=== PATIENT | female | born 1975 | race Hispanic/Latino ===

== ENCOUNTER 2024-02-12 18:52 | Emergency (ER) | payer OTHER, SELFPAY ==
[2024-02-12 19:04] VITALS: BP 148/99
[2024-02-12 19:23] LABS: Urine Albumin Negative (Neg - Trace); Urine Bilirubin Negative (Negative); Urine Character Clear (Clear); Urine Color Yellow; Urine Glucose Negative (Negative); Urine Ketone Negative (Negative); Urine Leukocyte Trace (Negative); Urine Nitrite Negative (Negative); Urine Occult Blood Negative (Negative); Urine Specific Gravity 1.015 (<1.030); Urine Urobilinogen Negative (Neg - 1+)
[2024-02-12 19:24] LABS: % Basophils 0.6 % (0-2); % Immature Granulocytes 0.2 % (0-0.5); % Lymphocytes 22.3 % (20.5-51.1); % Monocytes 8.9 % (1.7-9.3); Absolute Basophils 0.1 10^3/uL (0-0.2); Absolute Eosinophils 0.3 10^3/uL (0-0.7); Absolute Monocytes 0.8 10^3/uL (0.1-0.6); Absolute Neutrophils 5.9 10^3/uL (1.4-6.5); Hematocrit 37.7 % (37.0-47.0); Hemoglobin 13.4 g/dL (12.0-16.0); Mean Corp Hgb Conc. 35.5 g/dL (33.0-37.0); Mean Corpuscular Hgb 32.8 pg (27.0-31.0); Mean Corpuscular Volume 92.4 fL (81.0-99.0); Mean Platelet Volume 10.6 fL (7.4-10.4); Nucleated Red Blood Cells % 0 %; Platelet Count 289 10^3/uL (130-400); Red Blood Cell Count 4.08 10^6/uL (4.20-5.40); Red Cell Dist. Width 12.5 % (11.5-14.5); White Blood Cell Count 9.1 10^3/uL (4.8-10.8)
[2024-02-12 19:29] LABS: Urine Red Blood Cell None Seen /HPF (0-2); Urine White Cell 0-2 /HPF (0-5)
[2024-02-12 19:44] LABS: ALT (SGPT) 16 U/L (0-35); AST (SGOT) 21 U/L (14-36); Albumin 4.6 g/dl (3.5-5.0); Alkaline Phosphatase 88 U/L (38-126); Blood Urea Nitrogen 15 mg/dl (7-17); Calcium 9.4 mg/dl (8.4-10.2); Carbon Dioxide 20 mmol/L (22-30); Chloride 110 mmol/L (98-107); Glucose 109 mg/dl (70-99); Lipase 90 U/L (23-300); Potassium 3.8 mmol/L (3.5-5.1); Sodium 138 mmol/L (135-145); Total Bilirubin 0.2 mg/dl (0.2-1.3); Total Protein 7.8 g/dl (6.3-8.2); eGFR > 60.00
[2024-02-12 20:20] VITALS: BMI 24.6
[2024-02-12 20:25] VITALS: BP 144/95
[2024-02-12 21:00] VITALS: BP 147/81
--- NOTE | 2024-02-12 22:54 | ED.GENMED ---
History of Present Illness
General
Chief Complaint: Musculo-Skeletal Complaint
Source: patient
Exam Limitations: none
Time Seen by Provider: 02/12/24 20:14
Nursing documentation reviewed up to this point in time: agreed with
Travel History
Have you had any contact with someone who has COVID-19?: No
Do you have any symptoms of coronavirus? Fever > 100 degrees, chills, cough, shortness of breath, sore throat, loss of taste or smell, muscle aches, or headache?: No
History of Present Illness
History of Present Illness:
Patient to ED with complaint of right sided abdominal pain. States she has had intermittent pain for the past month but today it was constant. SHe has been seen by PCP for this. Has US scheduled for but states pain was worse today. Denies
fever/chill. Neg n/v/d. Eating and drinking normally. Pain is worse with movement. No urinary symptoms.
Past History
Past History
ED Past Medical History: None
ED Past Surgical History: Gynecological (Tubal ligation)
Social History
Tobacco: Smoker
Alcohol: None
Drug: None
Personal: Other
Living: with family
Employment: Employed
Family History
Family History: Negative Early CAD
Review of Systems
Review of Systems
Allergies reviewed?: Yes
All Other Systems: ROS reviewed and negative except as documented in HPI and ROS
Constitutional: Reports no symptoms
EENT: Reports no symptoms
Respiratory: Reports no symptoms
Cardiac: Reports no symptoms
ABD/GI: Reports abdominal pain (right upper abd and flank)
: Reports flank pain
Musculoskeletal: Reports no symptoms
Skin: Reports no symptoms
Neurological: Reports no symptoms
Psychiatric: Reports no symptoms
Phy Exam
General Physical Exam
General Presentation: well appearing and no apparent distress
General age: appears stated age
General Skin: warm and dry
General Habitus: normal
General Mental: alert
Pulmonary Exam
Pulmonary Exam: no respiratory distress and chest non tender
Gastrointestinal Exam
Gastrointestinal Exam: normal bowel sounds, non tender, soft, no organomegaly and no cva tenderness
Musculoskeletal Exam
Musculoskeletal Exam: full ROM and neuro vasc intact
Skin Exam
Skin Exam: normal color, warm/dry and no rash
Psychiatric Exam
Psychiatric Exam: normal mood/affect
Course
Orders/Labs/Results
Orders:
Orders
02/12/24 19:15
Complete Blood Count/With Diff Urgent
Comprehensive Metabolic Panel Urgent
Lipase Urgent
Urinalysis Reflex To Culture Urgent
Date Specimen was Collected: 02/12/24
Time Specimen was Collected: 19:08
Urine Microscopic Reflex Cult Urgent
02/12/24 21:09
US Abdomen Complete/Upper Urgent
Comment:
Reason For Exam: right flank/upper abd. pain
02/12/24 22:19
Tamsulosin [Flomax] 0.4 mg PO NOW STA
02/12/24 22:26
Hydrocodone 5/APAP 325 [[place] 5/325] 1 tablet PO NOW STA
Abnormal Lab Results
02/12/24
19:15
RBC 4.08 L 10^6/uL
(4.20-5.40)
MCH 32.8 H pg
(27.0-31.0)
MPV 10.6 H fL
(7.4-10.4)
Absolute Monos (auto) 0.8 H 10^3/uL
(0.1-0.6)
Chloride 110 H mmol/L
(98-107)
Carbon Dioxide 20 L mmol/L
(22-30)
Creatinine 1.1 H mg/dL
(0.6-1.0)
Glucose 109 H mg/dl
(70-99)
Leukocyte Esterase Rfl Trace A
(Negative)
02/12/24 19:15
02/12/24 19:15
Vital Signs
Initial and Last Documented VS:
Initial Vital Signs
Temp Pulse Resp BP Pulse Ox
98.3 F 89 18 148/99 100
02/12/24 19:04 02/12/24 19:04 02/12/24 19:04 02/12/24 19:04 02/12/24 19:04
Last Documented Vital Signs
Temp Pulse Resp BP Pulse Ox
98.3 F 89 18 147/81 100
02/12/24 19:04 02/12/24 19:04 02/12/24 19:04 02/12/24 21:00 02/12/24 20:57
*Critical Care Note
Total Time (30-74mins, 75-104mins- exclusive of procedures): Not Applicable
Update Note
Update Note:
Labs, US result reviewed with pateint. No findings to explain her symptoms. Adomen is soft, no tenderness to palpation. SHe describes pain as deep. No lower abdomen or pelvic pain. Doubtful that CT will add anything at this time. No WBC
elevation. LFT's normal. Will discharge home, follow up with PCP. Given instructions on s/s to return to ED and she is agreeable to plam
ED Attending Note
-
Portions of this chart may have been created with voice recognition software.� Occasional wrong word or��sound alike� substitutions may have occurred due to the inherent limitations of voice recognition software.
Discharge Plan
Departure
Patient Disposition: Home (Routine Discharge)
Date of Disposition: 02/12/24
Time of Disposition: 22:37
Patient with high blood pressure during this ER visit?: No
Condition: Good
Covid-19: Not Applicable
Discharge Problem:
Abdominal pain
Instructions: Abdominal Pain
Prescriptions:
No Action
hydrocodone-acetaminophen 1 TABLET tablet
1 tab PO Q4HPRN PRN (Reason: severe pain) Qty: 12 0RF
Referrals:
Wander Kincaid MD [Family Provider] - Call in 1-3 days for appt
Activity Restrictions/Additional Instructions:
return to the emergency department immediately for fever/chills, increasing pain, vomiting, or for any further concerns.
Interventions
Interventions:
*Risk Screen - Suicide Last Done: 02/12/24 20:20
*General Assessment Last Done: 02/12/24 20:20
*Neglect/Abuse Screening Last Done: 02/12/24 20:20
ED- Fall Risk Assessment Last Done: 02/12/24 20:20
*ED COVID-19 Vaccine History Last Done: 02/12/24 20:20
*Nursing Disposition Last Done: 02/12/24 22:43
ED-Musculoskeletal Assessment Last Done: 02/12/24 20:20
Discharge Date and Time
Discharge Date/Time: 02/12/24 22:43
== END 2024-02-12 22:43 | disposition home or self-care (01) ==
LOC: EMR 18:52
PROVIDERS: EMERGENCY PHYSICIAN Emergency Medicine; FAMILY PHYSICIAN Family Medicine
DX: R10.9 Unspecified abdominal pain (principal); F17.200 Nicotine dependence, unspecified, uncomplicated; Z98.51 Tubal ligation status
CPT/HCPCS: 99284; 76700; 80053; 81003; 81015; 83690; 85025

== ENCOUNTER 2025-03-10 13:34 | Emergency (ER) | payer OTHER, SELFPAY ==
[2025-03-10 13:36] VITALS: BP 120/94
[2025-03-10 14:14] LABS: % Basophils 0.6 % (0-2); % Eosinophils 0.5 % (0-6); % Immature Granulocytes 0.3 % (0-0.5); % Lymphocytes 10.9 % (20.5-51.1); % Monocytes 8.3 % (1.7-9.3); % Neutrophils 79.4 % (42.2-75.2); Absolute Basophils 0.1 10^3/uL (0-0.2); Absolute Eosinophils 0.1 10^3/uL (0-0.7); Absolute Lymphocytes 1.1 10^3/uL (1.2-3.4); Absolute Monocytes 0.8 10^3/uL (0.1-0.6); Absolute Neutrophils 7.9 10^3/uL (1.4-6.5); Hematocrit 38.2 % (37.0-47.0); Hemoglobin 13.7 g/dL (12.0-16.0); Mean Corp Hgb Conc. 35.9 g/dL (33.0-37.0); Mean Corpuscular Hgb 33.7 pg (27.0-31.0); Mean Corpuscular Volume 94.1 fL (81.0-99.0); Mean Platelet Volume 10.5 fL (7.4-10.4); Nucleated Red Blood Cells % 0 %; Platelet Count 310 10^3/uL (130-400); Red Blood Cell Count 4.06 10^6/uL (4.20-5.40); Red Cell Dist. Width 12.4 % (11.5-14.5)
[2025-03-10 14:18] LABS: Urine Albumin Negative (Neg - Trace); Urine Bilirubin Negative (Negative); Urine Character Clear (Clear); Urine Glucose Negative (Negative); Urine Ketone 2+ (Negative); Urine Leukocyte Negative (Negative); Urine Nitrite Negative (Negative); Urine Occult Blood 1+ (Negative); Urine Specific Gravity 1.015 (<1.030); Urine Urobilinogen Negative (Neg - 1+)
[2025-03-10 14:21] LABS: Urine Color Straw
[2025-03-10 14:27] LABS: HCG, Serum Qualitative Screen Negative
[2025-03-10 14:30] LABS: ALT (SGPT) 14 U/L (0-35); AST (SGOT) 23 U/L (14-36); Albumin 4.9 g/dl (3.5-5.0); Alkaline Phosphatase 100 U/L (38-126); Blood Urea Nitrogen 8 mg/dl (7-17); Calcium 9.5 mg/dl (8.4-10.2); Carbon Dioxide 19 mmol/L (22-30); Chloride 109 mmol/L (98-107); Glucose 130 mg/dl (70-99); Lipase 53 U/L (23-300); Potassium 3.8 mmol/L (3.5-5.1); Sodium 141 mmol/L (135-145); Total Bilirubin 0.8 mg/dl (0.2-1.3); Total Protein 7.8 g/dl (6.3-8.2); eGFR > 60.00
[2025-03-10 14:31] LABS: Urine Bacteria Few (Negative); Urine Red Blood Cell 0-2 /HPF (0-2); Urine Squamous Cell 0-2 /LPF (Few); Urine White Cell 0-2 /HPF (0-5)
[2025-03-10 14:37] LABS: Troponin I < 0.012 ng/ml
[2025-03-10 15:03] VITALS: BMI 20.7
--- NOTE | 2025-03-10 15:03 | ED.GENMED ---
History of Present Illness
General
Chief Complaint: Abdominal Pain
Time Seen by Provider: 03/10/25 15:03
History of Present Illness
History of Present Illness:
TIME OF INITIAL ENCOUNTER: 3:05 PM
HPI: Patient presents due to right-sided abdominal discomfort. The symptoms are primarily in the abdomen with radiation to the right flank region. She has no loss of appetite. She has had no fevers. The pain worsens with certain position
changes. At times, the pain radiates to the chest. She also reports known breast cysts that are 'large'. Other than tubal ligation, she has not had any abdominal surgeries.
EXAM:
GENERAL: Well appearing in no distress
HEENT: Moist oral mucosa
CARDIOVASCULAR: No murmurs, normal heart rate, regular rhythm, No chest wall tenderness
PULMONARY: No respiratory distress, breath sounds are clear and equal
ABDOMEN: Soft with no peritoneal signs, mild tenderness in the right lower quadrant along the midaxillary line up to the right flank that worsens with position changes
NEUROLOGIC: Excellent strength all extremities, no coordination deficits
PSYCHIATRIC: Appropriate mental status, normal insight and judgement
EXTREMITIES: Nontender, no edema, moves all extremities equally
SKIN: No rash, no lesions
NUMBER AND COMPLEXITY OF PROBLEMS ADDRESSED AT THE ENCOUNTER
� Chronic conditions affecting care: Depression, has had tubal ligation
� Acute Exacerbation and/or Progression of Chronic Illness: This is an acute problem
� Differential Diagnosis includes: Oblique muscle strain, other musculoskeletal etiology, UTI/pyelonephritis
AMOUNT AND/OR COMPLEXITY OF DATA TO BE REVIEWED AND ANALYZED
� I performed an independent evaluation of and my interpretation is:
EKG: Sinus 85, nonspecific ST abnormality
CT: CT concerning for lytic lesions of the spine and sacrum
X-rays:
Laboratory Studies: hCG negative, white count 10.0, hemoglobin 13.7, bicarb slightly low at 19, troponin less than 0.012, lipase and LFTs unremarkable, urinalysis shows no sign of infection
Other:
� Review of other/old records: I reviewed records, the patient was seen here with abdominal pain in January 2024
� Clinical information was obtained by an independent historian: None needed
� Prescriptions/Medications Considered but not given:
� Further testing considered but not performed:
RISK OF COMPLICATIONS AND/OR MORBIDITY OR MORTALITY OF PATIENT MANAGEMENT
� Social determinants of health affecting care: Lives at home, states she does not have insurance
� Discussion with other providers: Notified Dr. Jung of the patient's abnormal CT and he gave me the contact info for the patient to call for close outpatient follow-up [facility].
� Escalation of care including admission/observation vs risk of discharge considered: The patient presents with 1 day of right-sided abdominal pain with normal white blood cell count and pain that worsens with position changes.
Toradol and fluids are given. CT imaging obtained.
ANY OTHER UPDATES:
On reassessment at 6:10 PM: The patient feels improved after Toradol. I informed her of her CT results and emphasized the need for follow-up.
Past History
Past History
ED Past Medical History: None
ED Past Surgical History: Gynecological (Tubal ligation)
Social History
Tobacco: Smoker
Alcohol: None
Drug: None
Personal: Other
Living: with family
Employment: Employed
Family History
Family History: Negative Early CAD
Phy Exam
Physical Exam
Physical Exam:
See HPI
Course
Orders/Labs/Results
Orders:
Orders
03/10/25 13:41
Electrocardiogram (*1) Urgent
Reason for Study: Chest Pain
EKG- Treatment ONCE
Test Result ONCE
03/10/25 13:52
Complete Blood Count/With Diff Urgent
Comprehensive Metabolic Panel Urgent
HCG, Serum Qualitative Screen Urgent
Lipase Urgent
Troponin I Urgent
Urinalysis Reflex To Culture Urgent
Date Specimen was Collected: 03/10/25
Time Specimen was Collected: 13:41
Urine Microscopic Reflex Cult Urgent
03/10/25 15:11
CT Abd/pelvis W Iv Cont Urgent
Comment:
Reason For Exam: R pain
0.9% Sodium Chloride 1000 ml [Nss] 1,000 ml IV BOLUS
Ketorolac [Toradol] 15 mg IV NOW STA
Abnormal Lab Results
03/10/25
13:52
RBC 4.06 L 10^6/uL
(4.20-5.40)
MCH 33.7 H pg
(27.0-31.0)
MPV 10.5 H fL
(7.4-10.4)
Absolute Neuts (auto) 7.9 H 10^3/uL
(1.4-6.5)
Absolute Lymphs (auto) 1.1 L 10^3/uL
(1.2-3.4)
Absolute Monos (auto) 0.8 H 10^3/uL
(0.1-0.6)
Neutrophils % 79.4 H %
(42.2-75.2)
Lymphocytes % 10.9 L %
(20.5-51.1)
Chloride 109 H mmol/L
(98-107)
Carbon Dioxide 19 L mmol/L
(22-30)
Glucose 130 H mg/dl
(70-99)
Urine Ketones 2+ A
(Negative)
Ur Occult Blood Reflex 1+ A
(Negative)
Urine Bacteria (Reflex) Few A
(Negative)
03/10/25 13:52
03/10/25 13:52
Vital Signs
Initial and Last Documented VS:
Initial Vital Signs
Temp Pulse Resp BP Pulse Ox
36.8 C 96 18 120/94 100
03/10/25 13:36 03/10/25 13:36 03/10/25 13:36 03/10/25 13:36 03/10/25 13:36
Last Documented Vital Signs
Temp Pulse Resp BP Pulse Ox
36.6 C 73 16 141/76 100
03/10/25 16:02 03/10/25 16:02 03/10/25 16:02 03/10/25 16:02 03/10/25 16:02
*Critical Care Note
Total Time (30-74mins, 75-104mins- exclusive of procedures): Not Applicable
ED Attending Note
-
Portions of this chart may have been created with voice recognition software.� Occasional wrong word or��sound alike� substitutions may have occurred due to the inherent limitations of voice recognition software.
Discharge Plan
Departure
Patient Disposition: Home (Routine Discharge)
Date of Disposition: 03/10/25
Time of Disposition: 17:55
Patient with high blood pressure during this ER visit?: Yes
Discharge Problem:
Abdominal pain
Instructions: Abdominal Pain, BLOOD PRESSURE
Prescriptions:
No Action
hydrocodone-acetaminophen 1 TABLET tablet
1 tab PO Q4HPRN PRN (Reason: severe pain) Qty: 12 0RF
Referrals:
Wander Kincaid MD [Family Provider] -
Selvin Jung MD [Active] - Follow up in 2-3 days
Activity Restrictions/Additional Instructions:
The CAT scan shows lytic lesions of the spine and sacrum. I therefore spoke to Dr. Jung, the on-call oncologist. 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 They will do
more testing on you as an outpatient. We gave you Toradol tonight which is a medicine like Motrin. Basic blood work is unremarkable.
Interventions
Interventions:
*Risk Screen - Suicide Last Done: 03/10/25 13:36
*General Assessment Last Done: 03/10/25 13:36
*Neglect/Abuse Screening Last Done: 03/10/25 13:36
*ED- Fall Risk Assessment Last Done: 03/10/25 15:05
*ED COVID-19 Vaccine History Last Done: 03/10/25 13:36
UF-Xbygxa-Fqggkkqtuq Assessment Last Done: 03/10/25 15:05
Discharge Date and Time
Print Language: CHINESE
[2025-03-10] MEDS: NSS 1000 IV (15:39)
[2025-03-10] MEDS: TORADOL 15 MG IV (15:40)
[2025-03-10 16:02] VITALS: BP 141/76
== END 2025-03-10 18:20 | disposition home or self-care (01) ==
LOC: EMR 13:34
PROVIDERS: EMERGENCY PHYSICIAN Emergency Medicine; FAMILY PHYSICIAN Family Medicine
DX: R10.9 Unspecified abdominal pain (principal); R03.0 Elevated blood-pressure reading, without diagnosis of hypertension; Z59.71 Insufficient health insurance coverage; N60.09 Solitary cyst of unspecified breast; Z88.6 Allergy status to analgesic agent; Z88.5 Allergy status to narcotic agent; Z88.0 Allergy status to penicillin
CPT/HCPCS: 99284; 96361; 96374; 74177; 80053; 81003; 81015; 83690; 84484; 84703; 85025; 93005; Q9967

== ENCOUNTER → 2025-03-30 15:07 | Outpatient (REF) | payer OTHER, SELFPAY ==
[2025-03-30 16:26] LABS: % Basophils 0.5 % (0-2); % Immature Granulocytes 0.4 % (0-0.5); % Lymphocytes 9.5 % (20.5-51.1); % Monocytes 6.5 % (1.7-9.3); % Neutrophils 82.1 % (42.2-75.2); Absolute Basophils 0.1 10^3/uL (0-0.2); Absolute Eosinophils 0.1 10^3/uL (0-0.7); Absolute Immature Granulocytes 0.1 10^3/uL (0-0.05); Absolute Lymphocytes 1.2 10^3/uL (1.2-3.4); Absolute Monocytes 0.8 10^3/uL (0.1-0.6); Absolute Neutrophils 10.6 10^3/uL (1.4-6.5); Hematocrit 38.7 % (37.0-47.0); Hemoglobin 13.4 g/dL (12.0-16.0); Mean Corp Hgb Conc. 34.6 g/dL (33.0-37.0); Mean Corpuscular Hgb 33.4 pg (27.0-31.0); Mean Corpuscular Volume 96.5 fL (81.0-99.0); Mean Platelet Volume 11.7 fL (7.4-10.4); Nucleated Red Blood Cells % 0 %; Platelet Count 291 10^3/uL (130-400); Red Blood Cell Count 4.01 10^6/uL (4.20-5.40); Red Cell Dist. Width 12.3 % (11.5-14.5); White Blood Cell Count 12.9 10^3/uL (4.8-10.8)
[2025-03-30 16:42] LABS: ALT (SGPT) < 10 U/L (0-35); AST (SGOT) 16 U/L (14-36); Albumin 4.4 g/dl (3.5-5.0); Alkaline Phosphatase 100 U/L (38-126); Blood Urea Nitrogen 15 mg/dl (7-17); Calcium 9.4 mg/dl (8.4-10.2); Carbon Dioxide 23 mmol/L (22-30); Chloride 106 mmol/L (98-107); Direct Bilirubin 0.2 mg/dl (0.0-0.4); Glucose 84 mg/dl (70-99); Potassium 3.7 mmol/L (3.5-5.1); Sodium 140 mmol/L (135-145); Total Bilirubin 0.4 mg/dl (0.2-1.3); Total Protein 7.5 g/dl (6.3-8.2); eGFR > 60.00
== END ==
LOC: REG 15:07
PROVIDERS: ATTENDING PHYSICIAN Internal Medicine Hematology & Oncology; FAMILY PHYSICIAN Family Medicine
DX: R93.89 Abnormal findings on diagnostic imaging of other specified body structures (principal); G89.3 Neoplasm related pain (acute) (chronic); R91.1 Solitary pulmonary nodule
CPT/HCPCS: 36415; 80053; 82248; 85025; 86300

== ENCOUNTER → 2025-04-01 10:22 | Outpatient (REF) | payer SELFPAY | LOC: WDC 10:22 | PROVIDERS: ATTENDING PHYSICIAN Internal Medicine Hematology & Oncology; FAMILY PHYSICIAN Family Medicine | DX: N63.0 Unspecified lump in unspecified breast (principal); N63.10 Unspecified lump in the right breast, unspecified quadrant; N63.20 Unspecified lump in the left breast, unspecified quadrant | CPT/HCPCS: 88305; 19083; 76642; 77062; 77066; 88341; 88342; 88360; A4648 ==

== ENCOUNTER 2025-05-14 20:27 | Emergency (ER) | payer OTHER, SELFPAY ==
[2025-05-14 20:33] VITALS: BP 146/93
--- NOTE | 2025-05-14 21:22 | ED.GENMED ---
History of Present Illness
General
Chief Complaint: Cough
Source: patient and family
Time Seen by Provider: 05/14/25 21:08
History of Present Illness
History of Present Illness:
This patient is a 50-year-old female presents emergency department with complaints of right-sided chest pain. Patient is about to start treatment for recently diagnosed metastatic breast CA with associated 'lytic lesions'. She does not believe
that any lytic lesions are in her chest wall. She has been unable to get her pain medication filled due to insurance issues. She describes pain across the right mid axillary line area of her thorax and the superior anterior aspect of her chest.
This is worse with a deep breath or cough. She does not feel dyspneic. She denies associated fever, chills, nausea, vomiting, abdominal pain. She does have pain in the posterior superior pelvic area on the right which is unchanged. No leg
swelling, hemoptysis, or other complaints.
Past History
Past History
ED Past Medical History: Other (Breast CA with mets)
ED Past Surgical History: Gynecological (Tubal ligation) and Orthopedic
Social History
Tobacco: Smoker
Alcohol: None
Drug: None
Personal: Other
Living: with family
Employment: Employed
Family History
Family History: Negative Early CAD
Phy Exam
Physical Exam
Physical Exam:
GENERAL: Alert , appears very uncomfortable
EYE: pupils equal and reactive
NECK: Supple, no significant adenopathy.
ENT: o/p clr, mmm.
CARDIAC: Regular rate and rhythm .
LUNGS: Clear breath sounds bilaterally, no acute respiratory distress, no wheezes/rales/rhonchi. No crepitus or skin changes noted of thorax. Tenderness to palpation noted along the right mid thorax mid axillary line area
ABDOMEN: Soft, without focal tenderness, no r/g, no cvat
NEUROLOGICAL: Alert and oriented, no focal neuro deficits
SKIN: Warm and dry, skin intact.
MUSCULOSKELETAL: No edema, well perfused.
PSYCH: Normal and appropriate interaction.
Course
Orders/Labs/Results
Orders:
Orders
05/14/25 21:20
Electrocardiogram (*1) Stat
Reason for Study: Other
Other Reason for Exam: chest pain
CT Chest PE Study Urgent
Comment:
Reason For Exam: known breast ca, now R sided pleuritic pain
Cardiac Monitoring- Treatment ONCE
EKG- Treatment ONCE
Morphine Sulfate 8 mg IV NOW STA
05/14/25 22:11
Complete Blood Count/No Diff Urgent
Comprehensive Metabolic Panel Urgent
Abnormal Lab Results
05/14/25
22:11
RBC 3.68 L 10^6/uL
(4.20-5.40)
Hct 36.3 L %
(37.0-47.0)
MCH 33.4 H pg
(27.0-31.0)
Potassium 3.4 L mmol/L
(3.5-5.1)
Chloride 109 H mmol/L
(98-107)
BUN 19 H mg/dl
(7-17)
05/14/25 22:11
05/14/25 22:11
Vital Signs
Initial and Last Documented VS:
Initial Vital Signs
Temp Pulse Resp BP Pulse Ox
98.3 F 98 18 146/93 99
05/14/25 20:33 05/14/25 20:33 05/14/25 20:33 05/14/25 20:33 05/14/25 20:33
Last Documented Vital Signs
Temp Pulse Resp BP Pulse Ox
98.3 F 76 14 136/86 95
05/14/25 20:33 05/14/25 23:30 05/14/25 23:30 05/14/25 23:00 05/14/25 23:30
*Pulse Oximetry
SaO2: 99
Oxygen Mode of Delivery: Room air
*Critical Care Note
Total Time (30-74mins, 75-104mins- exclusive of procedures): Not Applicable
Update Note
Update Note:
Patient presents to the Emergency Department with ___chest and back pain
Number and Complexity of Problems Addressed at the Encounter
� Chronic conditions affecting care:
� Acute Exacerbation and/or Progression of Chronic Illness:
� Differential Diagnosis includes: But not limited to PE, pleurisy, rib fracture, pneumonia, etc. etc.
Amount and/or Complexity of Data to be Reviewed and Analyzed
� I performed an independent evaluation of and my interpretation is:
EKG: Read by me, normal sinus rhythm, normal rate, normal axis, no acute ischemia
CT:No acute disease of the chest. No evidence of pulmonary embolus.
Solid noncalcified right upper lobe pulmonary nodules. These are too small to be seen by prior PET scan. The [facility] Pulmonary Nodule Advisory Board will be automatically informed of the findings.
Known left breast malignancy. Stable
Moderate lytic osseous metastatic disease. Stable
Xrays:
Laboratory Studies:mild hypo K, prerenal azotemia (suspect mild dehydration, ivf given)
Other:
� Review of other/old records reveals:
� Clinical information was obtained by an independent historian: who is bedside
� Prescriptions/Medications Considered but not given:
� Further testing considered but not performed:
Risk of Complications and/or Morbidity or Mortality of Patient Management
� Social determinants of health affecting care:
� Discussion with other providers (PCP, Hospitalists, Consultants, etc):
� Escalation of care including admission/observation vs risk of discharge considered: Patient feels much more comfortable status post dose of IV morphine. Given workup here, history, physical etc. I do not clinically suspect PE,
fracture, ACS, pneumothorax, dissection. Symptoms most likely related to her cancer. She has been unable to get her pain medication filled due to 'insurance issues'. Recommendation will be for patient to coordinate with her oncologist in the
morning for her scheduled chemotherapy as well as coordination of coverage for her necessary pain medication.
ED Attending Note
-
Portions of this chart may have been created with voice recognition software.� Occasional wrong word or��sound alike� substitutions may have occurred due to the inherent limitations of voice recognition software.
Discharge Plan
Departure
Patient Disposition: Home (Routine Discharge)
Date of Disposition: 05/14/25
Time of Disposition: 23:50
Patient with high blood pressure during this ER visit?: Yes
Condition: Good
Discharge Problem:
Chest pain
Instructions: BLOOD PRESSURE, Chest Pain
Prescriptions:
No Action
hydrocodone-acetaminophen 1 TABLET tablet
1 tab PO Q4HPRN PRN (Reason: severe pain) Qty: 12 0RF
Referrals:
Trinity Brooks MD [Active, Hematology / Oncology] - Tomorrow
Wander Kincaid MD [Family Provider, Family Practice]
Activity Restrictions/Additional Instructions:
PLEASE PROCEED WITH YOUR APPOINTMENT WITH YOUR CANCER DOCTOR TOMORROW. IT IS IMPORTANT THAT YOU COORDINATE WITH YOUR DOCTOR REGARDING FURTHER PAIN MANAGEMENT. IF YOU DEVELOP WORSENING OR NEW PAIN, FEVER, VOMITING, TROUBLE BREATHING, ABDOMINAL
PAIN, OR OTHER WORRISOME SIGNS, PLEASE RETURN TO THE ER IMMEDIATELY! PLEASE FOLLOW-UP WITH YOUR DOCTOR REGARDING YOUR CAT SCAN REPORT.
Interventions
Interventions:
*Risk Screen - Suicide Last Done: 05/14/25 20:33
*General Assessment Last Done: 05/14/25 22:23
*Neglect/Abuse Screening Last Done: 05/14/25 20:33
*ED- Fall Risk Assessment Last Done: 05/14/25 22:23
*ED COVID-19 Vaccine History Last Done: 05/14/25 22:23
*Nursing Disposition Last Done: 05/15/25 00:02
ED- Pulmonary Assessment Last Done: 05/14/25 22:35
Discharge Date and Time
Discharge Date/Time: 05/15/25 00:02
Print Language: SAMI
[2025-05-14 22:00] VITALS: BP 118/78
[2025-05-14 22:20] LABS: Hematocrit 36.3 % (37.0-47.0); Hemoglobin 12.3 g/dL (12.0-16.0); Mean Corp Hgb Conc. 33.9 g/dL (33.0-37.0); Mean Corpuscular Hgb 33.4 pg (27.0-31.0); Mean Corpuscular Volume 98.6 fL (81.0-99.0); Mean Platelet Volume 10.1 fL (7.4-10.4); Platelet Count 288 10^3/uL (130-400); Red Blood Cell Count 3.68 10^6/uL (4.20-5.40); Red Cell Dist. Width 12.6 % (11.5-14.5); White Blood Cell Count 9.8 10^3/uL (4.8-10.8)
[2025-05-14 22:23] VITALS: BMI 26.1
[2025-05-14] MEDS: MORPHINE SULFATE 8 MG IV (22:27)
[2025-05-14 22:42] LABS: ALT (SGPT) 12 U/L (0-35); AST (SGOT) 16 U/L (14-36); Albumin 3.7 g/dl (3.5-5.0); Alkaline Phosphatase 117 U/L (38-126); Blood Urea Nitrogen 19 mg/dl (7-17); Calcium 9.1 mg/dl (8.4-10.2); Carbon Dioxide 27 mmol/L (22-30); Chloride 109 mmol/L (98-107); Estimated Creatinine Clearance 63 ml/min; Glucose 97 mg/dl (70-99); Potassium 3.4 mmol/L (3.5-5.1); Sodium 140 mmol/L (135-145); Total Bilirubin 0.2 mg/dl (0.2-1.3); Total Protein 6.4 g/dl (6.3-8.2); eGFR > 60.00
[2025-05-14 23:00] VITALS: BP 136/86
== END 2025-05-15 00:02 | disposition home or self-care (01) ==
LOC: EMR 20:27
PROVIDERS: EMERGENCY PHYSICIAN Emergency Medicine; FAMILY PHYSICIAN Family Medicine
DX: R07.89 Other chest pain (principal); R05.9 Cough, unspecified; F17.200 Nicotine dependence, unspecified, uncomplicated; Z59.71 Insufficient health insurance coverage; Z85.3 Personal history of malignant neoplasm of breast; Z98.51 Tubal ligation status
CPT/HCPCS: 99284; 96374; 71275; 80053; 85027; 93005; Q9967

== ENCOUNTER → 2025-06-09 13:45 | Outpatient (REF) | payer OTHER, SELFPAY ==
[2025-06-09 14:33] LABS: Hematocrit 35.2 % (37.0-47.0); Hemoglobin 12.0 g/dL (12.0-16.0); Mean Corp Hgb Conc. 34.1 g/dL (33.0-37.0); Mean Corpuscular Volume 97.8 fL (81.0-99.0); Nucleated Red Blood Cells % 0 %; Platelet Count 210 10^3/uL (130-400); Red Cell Dist. Width 13.0 % (11.5-14.5)
[2025-06-09 15:02] LABS: ALT (SGPT) 11 U/L (0-35); AST (SGOT) 16 U/L (14-36); Albumin 3.8 g/dl (3.5-5.0); Alkaline Phosphatase 281 U/L (38-126); Blood Urea Nitrogen 12 mg/dl (7-17); Calcium 8.2 mg/dl (8.4-10.2); Carbon Dioxide 22 mmol/L (22-30); Chloride 112 mmol/L (98-107); Glucose 96 mg/dl (70-99); Potassium 3.5 mmol/L (3.5-5.1); Sodium 140 mmol/L (135-145); Total Protein 6.6 g/dl (6.3-8.2); eGFR > 60.00
== END ==
LOC: REG 13:45
PROVIDERS: ATTENDING PHYSICIAN Internal Medicine Hematology & Oncology; FAMILY PHYSICIAN Family Medicine
DX: R93.89 Abnormal findings on diagnostic imaging of other specified body structures (principal); G89.3 Neoplasm related pain (acute) (chronic); R91.1 Solitary pulmonary nodule; C50.212 Malignant neoplasm of upper-inner quadrant of left female breast
CPT/HCPCS: 36415; 80053; 85025

== ENCOUNTER 2025-06-15 08:25 | Emergency (ER) | payer OTHER, SELFPAY ==
[2025-06-15 08:27] VITALS: BP 135/97
--- NOTE | 2025-06-15 08:49 | EDRN ---
Sanchez BARNARD in room w/ pt at this time.
[2025-06-15] MEDS: NSS 1000 IV (09:06)
[2025-06-15] MEDS: ZOFRAN 4 MG IV (09:15)
[2025-06-15 09:19] LABS: Hematocrit 37.8 % (37.0-47.0); Hemoglobin 13.2 g/dL (12.0-16.0); Mean Corp Hgb Conc. 34.9 g/dL (33.0-37.0); Mean Corpuscular Volume 97.7 fL (81.0-99.0); Nucleated Red Blood Cells % 0 %; Platelet Count 276 10^3/uL (130-400); Red Cell Dist. Width 13.3 % (11.5-14.5)
[2025-06-15 09:20] VITALS: BP 125/89; BMI 21.5
--- NOTE | 2025-06-15 09:28 | ED.GENMED ---
History of Present Illness
General
Chief Complaint: Abdominal Pain
Source: patient
Exam Limitations: none
Time Seen by Provider: 06/15/25 08:38
Nursing documentation reviewed up to this point in time: agreed with
History of Present Illness
History of Present Illness:
50-year-old female with past medical history of stage IV breast cancer with metastasis to bone and lung currently on chemo presenting to the emergency department today with concerns of diarrhea generalized abdominal pain starting yesterday. She
tried to loperamide at home without relief.
Past History
Past History
ED Past Medical History: Other (Breast CA with mets)
ED Past Surgical History: Gynecological (Tubal ligation) and Orthopedic
Social History
Tobacco: Smoker
Alcohol: None
Drug: None
Personal: Other
Living: with family
Employment: Employed
Family History
Family History: Negative Early CAD
Review of Systems
Review of Systems
Allergies reviewed?: Yes
All Other Systems: ROS reviewed and negative except as documented in HPI and ROS
Phy Exam
Physical Exam
Physical Exam:
GENERAL: Alert , in no apparent distress
EYE: pupils equal and reactive
NECK: Supple, no significant adenopathy.
ENT: o/p clr, mmm.
CARDIAC: Regular rate and rhythm .
LUNGS: Clear breath sounds bilaterally, no acute respiratory distress, no wheezes/rales/rhonchi
ABDOMEN: Vague abdominal pain to palpation mainly to the left lower quadrant.
NEUROLOGICAL: Alert and oriented, no focal neuro deficits
SKIN: Warm and dry, skin intact.
MUSCULOSKELETAL: No edema, well perfused.
PSYCH: Normal and appropriate interaction.
Course
Orders/Labs/Results
Orders:
Orders
06/15/25 08:40
STOOL [C difficile Antigen & Toxins] Urgent
CHANCE Source: Feces/Stool
Specimen Description:
Stool Culture Urgent
CHANCE Source: Feces/Stool
Specimen Description:
06/15/25 08:50
0.9% Sodium Chloride 1000 ml [Nss] 1,000 ml IV BOLUS
Ondansetron Injectable [Zofran] 4 mg IV NOW STA
06/15/25 09:05
Complete Blood Count/With Diff Urgent
Comprehensive Metabolic Panel Urgent
Lipase Urgent
06/15/25 09:28
CT Abd/Pel (IV only)-DH only Urgent
Comment:
Reason For Exam: llq pain on chemo hx of CA
06/15/25 11:42
Dicyclomine HCl [Bentyl] 20 mg IM NOW STA
Famotidine [Pepcid] 20 mg IV NOW STA
Abnormal Lab Results
06/15/25
09:05
WBC 4.6 L 10^3/uL
(4.8-10.8)
RBC 3.87 L 10^6/uL
(4.20-5.40)
MCH 34.1 H pg
(27.0-31.0)
Potassium 3.4 L mmol/L
(3.5-5.1)
Chloride 111 H mmol/L
(98-107)
BUN 3 L mg/dl
(7-17)
Calcium 7.9 L mg/dl
(8.4-10.2)
Alkaline Phosphatase 269 H U/L
(38-126)
06/15/25 09:05
06/15/25 09:05
Vital Signs
Initial and Last Documented VS:
Initial Vital Signs
Temp Pulse Resp BP Pulse Ox
98.4 F 90 18 135/97 100
06/15/25 08:27 06/15/25 08:27 06/15/25 08:27 06/15/25 08:27 06/15/25 08:27
Last Documented Vital Signs
Temp Pulse Resp BP Pulse Ox
98.4 F 62 16 123/84 100
06/15/25 08:27 06/15/25 13:00 06/15/25 13:00 06/15/25 13:00 06/15/25 13:00
MDM/Problems Addressed
MDM/Problems Addressed:
50-year-old female presenting with concerns of abdominal pain diarrhea starting yesterday. Patient is on chemo for stage IV breast cancer with mets. On arrival vital signs are normal. Labs without acute abnormalities. CT scan without emergent
findings. This point patient stable for discharge no bowel movements while here. Advised for close outpatient follow-up. Return precautions given.
*Pulse Oximetry
SaO2: 100
Oxygen Mode of Delivery: Room air
Patient hypoxic: no (100)
*Critical Care Note
Total Time (30-74mins, 75-104mins- exclusive of procedures): Not Applicable
ED Attending Note
-
Portions of this chart may have been created with voice recognition software.� Occasional wrong word or��sound alike� substitutions may have occurred due to the inherent limitations of voice recognition software.
Discharge Plan
Departure
Patient Disposition: Home (Routine Discharge)
Date of Disposition: 06/15/25
Time of Disposition: 13:51
Patient with high blood pressure during this ER visit?: No
Condition: Good
Covid-19: Not Applicable
Discharge Problem:
Diarrhea
Instructions: Diarrhea in teens and adults
Prescriptions:
New
ondansetron 4 mg tablet,disintegrating
4 mg PO Q6H PRN (Reason: nausea and vomiting) Qty: 7 0RF
dicyclomine 20 mg tablet
20 mg PO QID PRN (Reason: abdominal pain) Qty: 10 0RF
No Action
hydrocodone-acetaminophen 1 TABLET tablet
1 tab PO Q4HPRN PRN (Reason: severe pain) Qty: 12 0RF
Referrals:
Kaur Keith MD [Primary Care Provider, Internal Medicine]
Wander Kincaid MD [Family Provider, [facility]]
Activity Restrictions/Additional Instructions:
You came to the emergency department today with concerns of ongoing diarrhea. Here you have a reassuring assessment. Please follow closely with your primary care team. Return for any worsening, new or concerning symptoms.
Interventions
Interventions:
*Risk Screen - Suicide Last Done: 06/15/25 09:22
*General Assessment Last Done: 06/15/25 09:49
*Neglect/Abuse Screening Last Done: 06/15/25 09:23
*ED- Fall Risk Assessment Last Done: 06/15/25 09:21
*ED COVID-19 Vaccine History Last Done: 06/15/25 09:21
FB-Aavsmz-Ysifsredft Assessment Last Done: 06/15/25 09:23
Discharge Date and Time
Print Language: AUSTRIAN
[2025-06-15 09:32] LABS: ALT (SGPT) 12 U/L (0-35); AST (SGOT) 19 U/L (14-36); Albumin 4.3 g/dl (3.5-5.0); Alkaline Phosphatase 269 U/L (38-126); Blood Urea Nitrogen 3 mg/dl (7-17); Calcium 7.9 mg/dl (8.4-10.2); Carbon Dioxide 24 mmol/L (22-30); Chloride 111 mmol/L (98-107); Estimated Creatinine Clearance 70 ml/min; Glucose 95 mg/dl (70-99); Lipase 79 U/L (23-300); Potassium 3.4 mmol/L (3.5-5.1); Sodium 141 mmol/L (135-145); Total Protein 7.5 g/dl (6.3-8.2); eGFR > 60.00
[2025-06-15 10:10] VITALS: BP 111/69
[2025-06-15 11:00] VITALS: BP 120/69
--- NOTE | 2025-06-15 11:34 | EDRN ---
Pt stated she had watery diarrhea yesterday over 4 times. Pt had 3 stools this am 2 watery green stools and one yang in color.
[2025-06-15 12:00] VITALS: BP 121/76
[2025-06-15] MEDS: PEPCID 20 MG IV (12:05)
[2025-06-15] MEDS: BENTYL 20 MG IM (12:05)
--- NOTE | 2025-06-15 12:54 | EDRN ---
Pt's spouse has returned and came out to ask if pt can eat as he brought her some quesadillas. This RN TT'daria BARNARD w/ his question.
[2025-06-15 13:00] VITALS: BP 123/84
--- NOTE | 2025-06-15 13:20 | EDRN ---
Pt was able to eat some small bites of quesadilla. Pt was in rest room when I was in there. Will check w/ pt when out of BR.
--- NOTE | 2025-06-15 13:40 | EDRN ---
Sanchez Deng PA in to speak w/ pt.
== END 2025-06-15 13:55 | disposition home or self-care (01) ==
LOC: EMR 08:25
PROVIDERS: Radiology Neuroradiology; EMERGENCY PHYSICIAN Emergency Medicine; FAMILY PHYSICIAN Family Medicine; PRIMARYCARE PHYSICIAN Internal Medicine
DX: R19.7 Diarrhea, unspecified (principal); R10.84 Generalized abdominal pain; C50.919 Malignant neoplasm of unspecified site of unspecified female breast; C78.00 Secondary malignant neoplasm of unspecified lung; C79.51 Secondary malignant neoplasm of bone; F17.200 Nicotine dependence, unspecified, uncomplicated
CPT/HCPCS: 96374; 96375; 96372; 99284; 74177; 80053; 83690; 85025; Q9967

== ENCOUNTER → 2025-07-07 10:42 | Outpatient (REF) | payer OTHER, SELFPAY ==
[2025-07-07 11:56] LABS: Hematocrit 35.8 % (37.0-47.0); Hemoglobin 12.3 g/dL (12.0-16.0); Mean Corp Hgb Conc. 34.4 g/dL (33.0-37.0); Mean Corpuscular Volume 97.0 fL (81.0-99.0); Nucleated Red Blood Cells % 0 %; Platelet Count 297 10^3/uL (130-400); Red Cell Dist. Width 13.9 % (11.5-14.5)
[2025-07-07 12:39] LABS: ALT (SGPT) < 10 U/L (0-35); AST (SGOT) 17 U/L (14-36); Albumin 4.0 g/dl (3.5-5.0); Alkaline Phosphatase 116 U/L (38-126); Blood Urea Nitrogen 6 mg/dl (7-17); Calcium 7.3 mg/dl (8.4-10.2); Carbon Dioxide 23 mmol/L (22-30); Chloride 111 mmol/L (98-107); Glucose 87 mg/dl (70-99); Magnesium 2.0 mg/dl (1.6-2.3); Potassium 3.5 mmol/L (3.5-5.1); Sodium 141 mmol/L (135-145); Total Protein 6.8 g/dl (6.3-8.2); eGFR > 60.00
== END ==
LOC: REG 10:42
PROVIDERS: ATTENDING PHYSICIAN Nurse Practitioner Adult Health; FAMILY PHYSICIAN Family Medicine
DX: R93.89 Abnormal findings on diagnostic imaging of other specified body structures (principal); G89.3 Neoplasm related pain (acute) (chronic); R91.1 Solitary pulmonary nodule; C50.212 Malignant neoplasm of upper-inner quadrant of left female breast
CPT/HCPCS: 36415; 80053; 83735; 85025

== ENCOUNTER 2025-08-09 17:45 | Emergency (ER) | payer OTHER, SELFPAY ==
[2025-08-09 17:47] VITALS: BP 142/83
--- NOTE | 2025-08-09 18:08 | ED.GENMED ---
History of Present Illness
General
Chief Complaint: Fever
Time Seen by Provider: 08/09/25 17:53
History of Present Illness
History of Present Illness:
50-year-old female with history of metastatic breast cancer presents to the emergency department for evaluation of a fever that began today. She is currently on hormone paige therapy, was apparently on steroids recently as well and discontinued
this within the past week per her oncologist. She notes that she went out in public to the [place] yesterday. Reports headache and malaise, denies sore throat, cough, dysuria, hematuria, or rashes.
Past History
Past History
ED Past Medical History: Other (Breast CA with mets)
ED Past Surgical History: Gynecological (Tubal ligation) and Orthopedic
Social History
Tobacco: Smoker
Alcohol: None
Drug: None
Personal: Other
Living: with family
Employment: Employed
Family History
Family History: Negative Early CAD
Review of Systems
Review of Systems
Allergies reviewed?: Yes
All Other Systems: ROS reviewed and negative except as documented in HPI and ROS
Phy Exam
Physical Exam
Physical Exam:
GEN: Well appearing, NAD, WDWN
Eyes: PERRLA, EOMs intact, no scleral icterus
HENT: NCAT, oral mucosa moist, no JVD, no cervical adenopathy.
Lungs: CTAB, no wheezes, rales, rhonchi, normal chest wall excursion
Cardiac: RRR, no M/R/G, no peripheral edema. Radial pulses 2+ bilat
Abdomen: S, NT, ND, NABS, no masses or hepatosplenomegaly
Neuro: AO x 3, no focal deficits to BUE/BLE, normal sensation throughout
MSK: No gross deformity or ecchymosis. No edema. No digital clubbing
Skin: No rashes, petechiae. Normal color, no pallor or jaundice.
Psych: Calm, cooperative, proper hygiene
Sepsis
Sepsis Screening
Sepsis Assessment: Sepsis Ruled Out
Sepsis Screen
Sepsis Screen: Sepsis Ruled Out
Date: 08/09/25
Time: 19:49
Course
Orders/Labs/Results
Orders:
Orders
08/09/25 18:07
Acetaminophen [Tylenol] 1,000 mg PO NOW STA
08/09/25 18:08
CR Chest - 2 Views Urgent
Comment:
Reason For Exam: fever
08/09/25 18:25
COVID-19 Antigen Urgent
Source: Nasal Swab
Complete Blood Count/With Diff Urgent
Comprehensive Metabolic Panel Urgent
Lactic Acid Q4H
Comment: CANCEL 2nd LACTIC ACID IF 1st LACTIC ACID IS LESS THAN 2
Blood Culture Q30M
CHANCE Source: Blood/Venous
Specimen Description:
Influenza A+B Rapid Molecular Urgent
CHANCE Source: Nasal Swab
Specimen Description:
08/09/25 18:53
Urinalysis Reflex To Culture Urgent
Date Specimen was Collected: 08/09/25
Time Specimen was Collected: 18:50
Blood Culture Q30M
CHANCE Source: Blood/Venous
Specimen Description:
Abnormal Lab Results
08/09/25
18:25
RBC 3.34 L 10^6/uL
(4.20-5.40)
Hgb 11.6 L g/dL
(12.0-16.0)
Hct 33.4 L %
(37.0-47.0)
MCV 100.0 H fL
(81.0-99.0)
MCH 34.7 H pg
(27.0-31.0)
RDW 15.0 H %
(11.5-14.5)
Absolute Lymphs (auto) 0.8 L 10^3/uL
(1.2-3.4)
Neutrophils % 76.1 H %
(42.2-75.2)
Lymphocytes % 15.3 L %
(20.5-51.1)
Carbon Dioxide 21 L mmol/L
(22-30)
Calcium 8.0 L mg/dl
(8.4-10.2)
08/09/25 18:25
08/09/25 18:25
Vital Signs
Initial and Last Documented VS:
Initial Vital Signs
Temp Pulse Resp BP Pulse Ox
102.3 F H 110 14 142/83 99
08/09/25 17:47 08/09/25 17:47 08/09/25 17:47 08/09/25 17:47 08/09/25 17:47
Last Documented Vital Signs
Temp Pulse Resp BP Pulse Ox
100.1 F 96 19 101/67 97
08/09/25 19:46 08/09/25 19:30 08/09/25 19:00 08/09/25 19:00 08/09/25 19:30
MDM/Problems Addressed
MDM/Problems Addressed:
50-year-old female with metastatic breast cancer presents with fever. She has no clear focal symptoms however workup is reassuring with broadly negative test. Most likely self-limited viral syndrome. She has no meningitic signs and nontender
abdominal exam. Discussed supportive care for viral syndrome however given her underlying immunocompromise will provide a course of doxycycline with the instructions to hold this for the next 3 days and only begin taking if fever does not resolve
*Pulse Oximetry
SaO2: 99
Patient hypoxic: no
*Critical Care Note
Total Time (30-74mins, 75-104mins- exclusive of procedures): Not Applicable
ED Attending Note
-
Portions of this chart may have been created with voice recognition software.� Occasional wrong word or��sound alike� substitutions may have occurred due to the inherent limitations of voice recognition software.
Discharge Plan
Departure
Patient Disposition: Home (Routine Discharge)
Date of Disposition: 08/09/25
Time of Disposition: 19:28
Patient with high blood pressure during this ER visit?: No
Discharge Problem:
Fever
Instructions: Fever, Adult (DC)
Prescriptions:
New
doxycycline hyclate 100 mg tablet
100 mg PO BID Qty: 10 0RF
No Action
hydrocodone-acetaminophen 1 TABLET tablet
1 tab PO Q4HPRN PRN (Reason: severe pain) Qty: 12 0RF
ondansetron 4 mg tablet,disintegrating
4 mg PO Q6H PRN (Reason: nausea and vomiting) Qty: 7 0RF
dicyclomine 20 mg tablet
20 mg PO QID PRN (Reason: abdominal pain) Qty: 10 0RF
Referrals:
Wander Kincaid MD [Family Provider, Family Practice]
Activity Restrictions/Additional Instructions:
Do not begin taking the antibiotics UNLESS your fever does not resolve in the next 3 days
Interventions
Interventions:
*Risk Screen - Suicide Last Done: 08/09/25 17:47
*General Assessment Last Done: 08/09/25 17:47
*Neglect/Abuse Screening Last Done: 08/09/25 17:47
*ED- Fall Risk Assessment Last Done: 08/09/25 18:08
*ED COVID-19 Vaccine History Last Done: 08/09/25 17:47
ED- Neurological Assessment Last Done: 08/09/25 18:29
ED-Skin Assessment Last Done: 08/09/25 18:29
Discharge Date and Time
Print Language: TURKISH
[2025-08-09 18:15] VITALS: BMI 23.0
[2025-08-09] MEDS: TYLENOL 1000 MG PO (18:15)
[2025-08-09 18:37] LABS: Hematocrit 33.4 % (37.0-47.0); Hemoglobin 11.6 g/dL (12.0-16.0); Mean Corp Hgb Conc. 34.7 g/dL (33.0-37.0); Mean Corpuscular Volume 100.0 fL (81.0-99.0); Nucleated Red Blood Cells % 0 %; Platelet Count 242 10^3/uL (130-400); Red Cell Dist. Width 15.0 % (11.5-14.5)
[2025-08-09 18:50] VITALS: BP 108/71
[2025-08-09 18:54] LABS: COVID-19 Antigen Negative (Negative)
[2025-08-09 18:56] LABS: ALT (SGPT) 15 U/L (0-35); AST (SGOT) 18 U/L (14-36); Albumin 3.8 g/dl (3.5-5.0); Alkaline Phosphatase 75 U/L (38-126); Blood Urea Nitrogen 10 mg/dl (7-17); Calcium 8.0 mg/dl (8.4-10.2); Carbon Dioxide 21 mmol/L (22-30); Chloride 106 mmol/L (98-107); Estimated Creatinine Clearance 63 ml/min; Glucose 97 mg/dl (70-99); Potassium 4.1 mmol/L (3.5-5.1); Sodium 135 mmol/L (135-145); Total Protein 6.8 g/dl (6.3-8.2); eGFR > 60.00
[2025-08-09 19:00] VITALS: BP 101/67
[2025-08-09 19:09] LABS: Urine Character Clear (Clear)
== END 2025-08-09 19:50 | disposition home or self-care (01) ==
LOC: EMR 17:45
PROVIDERS: Physician Assistant; EMERGENCY PHYSICIAN Emergency Medicine; FAMILY PHYSICIAN Family Medicine
DX: R50.9 Fever, unspecified (principal); C50.919 Malignant neoplasm of unspecified site of unspecified female breast; F17.200 Nicotine dependence, unspecified, uncomplicated
CPT/HCPCS: 99284; 71046; 80053; 81003; 83605; 85025; 87040; 87502; 87811

== ENCOUNTER → 2025-08-31 11:49 | Outpatient (REF) | payer OTHER, SELFPAY ==
[2025-08-31 12:44] LABS: Glucose 84 mg/dl (70-99)
== END ==
LOC: PET 11:49
PROVIDERS: ATTENDING PHYSICIAN Internal Medicine Hematology & Oncology
DX: C50.212 Malignant neoplasm of upper-inner quadrant of left female breast (principal); R93.89 Abnormal findings on diagnostic imaging of other specified body structures; G89.3 Neoplasm related pain (acute) (chronic); R91.1 Solitary pulmonary nodule
CPT/HCPCS: 36415; 78815; 82947; A9552

== ENCOUNTER 2025-09-04 20:37 | Emergency (ER) | payer OTHER, SELFPAY ==
[2025-09-04 20:40] VITALS: BP 144/91
[2025-09-04 21:14] LABS: Hematocrit 32.8 % (37.0-47.0); Hemoglobin 11.3 g/dL (12.0-16.0); Mean Corp Hgb Conc. 34.5 g/dL (33.0-37.0); Mean Corpuscular Volume 104.1 fL (81.0-99.0); Nucleated Red Blood Cells % 0 %; Platelet Count 299 10^3/uL (130-400); Red Cell Dist. Width 14.2 % (11.5-14.5)
[2025-09-04 21:37] LABS: ALT (SGPT) 13 U/L (0-35); AST (SGOT) 19 U/L (14-36); Albumin 4.1 g/dl (3.5-5.0); Alkaline Phosphatase 63 U/L (38-126); Blood Urea Nitrogen 14 mg/dl (7-17); Calcium 9.7 mg/dl (8.4-10.2); Carbon Dioxide 24 mmol/L (22-30); Chloride 110 mmol/L (98-107); Glucose 105 mg/dl (70-99); Lipase 66 U/L (23-300); Potassium 3.7 mmol/L (3.5-5.1); Sodium 139 mmol/L (135-145); Total Protein 7.4 g/dl (6.3-8.2); eGFR > 60.00
--- NOTE | 2025-09-04 23:42 | ED.GENMED ---
History of Present Illness
General
Chief Complaint: Abdominal Symptoms
Time Seen by Provider: 09/04/25 23:23
History of Present Illness
History of Present Illness:
50-year-old female with history of metastatic breast cancer presents to the emergency department for evaluation of green/watery diarrhea for the past 2 days. She was seen in this hospital 1 month ago and treated for nonspecific infection with
doxycycline. She is also on infusions for her breast cancer as well as oral chemotherapy. Denies any nausea or vomiting. Reports generalized abdominal discomfort. No rashes. No recent international travel
Past History
Past History
ED Past Medical History: Other (Breast CA with mets)
ED Past Surgical History: Gynecological (Tubal ligation) and Orthopedic
Social History
Tobacco: Smoker
Alcohol: None
Drug: None
Personal: Other
Living: with family
Employment: Employed
Family History
Family History: Negative Early CAD
Review of Systems
Review of Systems
Allergies reviewed?: Yes
All Other Systems: ROS reviewed and negative except as documented in HPI and ROS
Phy Exam
Physical Exam
Physical Exam:
GEN: Well appearing, NAD, WDWN
HEENT: Oral mucosa moist, no scleral icterus
Cardiac: Regular rate
Lung: No respiratory distress, no tachypnea
Abdomen: Soft, diffusely tender to all 4 quadrants, no rigidity
MSK: No gross deformity or injuries
Skin: Good color, no pallor or jaundice, no rashes
Neuro: AO x3, moves all extremities freely
Psych: Calm, cooperative
Course
Orders/Labs/Results
Orders:
Orders
09/04/25 20:52
CBC/With Diff [Complete Blood Count/With Diff] Urgent
CMP [Comprehensive Metabolic Panel] Urgent
Lipase Urgent
09/04/25 20:53
STOOL [C difficile Antigen & Toxins] Urgent
CHANCE Source: Feces/Stool
Specimen Description:
Date Specimen was Collected: 09/04/25
Time Specimen was Collected: 20:43
09/04/25 23:41
Add On - Microbiology Urgent
Tests Added?: stool culture
Dicyclomine [Bentyl] 20 mg PO NOW STA
09/05/25 00:01
Vancomycin HCl [Firvanq] 125 mg PO NOW STA
Abnormal Lab Results
09/04/25
20:52
RBC 3.15 L 10^6/uL
(4.20-5.40)
Hgb 11.3 L g/dL
(12.0-16.0)
Hct 32.8 L %
(37.0-47.0)
MCV 104.1 H fL
(81.0-99.0)
MCH 35.9 H pg
(27.0-31.0)
Absolute Monos (auto) 0.7 H 10^3/uL
(0.1-0.6)
Monocytes % 12.8 H %
(1.7-9.3)
Chloride 110 H mmol/L
(98-107)
Glucose 105 H mg/dl
(70-99)
09/04/25 20:52
09/04/25 20:52
Vital Signs
Initial and Last Documented VS:
Initial Vital Signs
Temp Pulse Resp BP Pulse Ox
98.0 F 98 14 144/91 100
09/04/25 20:40 09/04/25 20:40 09/04/25 20:40 09/04/25 20:40 09/04/25 20:40
Last Documented Vital Signs
Temp Pulse Resp BP Pulse Ox
98.2 F 69 18 115/82 100
09/04/25 23:49 09/04/25 23:49 09/04/25 23:49 09/04/25 23:49 09/04/25 23:49
MDM/Problems Addressed
MDM/Problems Addressed:
Will begin empiric treatment for C. difficile given recent antibiotic exposure and current chemo regimen, stool culture and C. difficile pending at time of discharge. She is clinically well with no indication for admission
*Pulse Oximetry
SaO2: 100
Oxygen Mode of Delivery: Room air
Patient hypoxic: no
*Critical Care Note
Total Time (30-74mins, 75-104mins- exclusive of procedures): Not Applicable
ED Attending Note
-
Portions of this chart may have been created with voice recognition software.� Occasional wrong word or��sound alike� substitutions may have occurred due to the inherent limitations of voice recognition software.
Discharge Plan
Departure
Patient Disposition: Home (Routine Discharge)
Date of Disposition: 09/04/25
Time of Disposition: 23:43
Patient with high blood pressure during this ER visit?: No
Discharge Problem:
Watery diarrhea
Instructions: Diarrhea in teens and adults
Prescriptions:
No Action
hydrocodone-acetaminophen 1 TABLET tablet
1 tab PO Q4HPRN PRN (Reason: severe pain) Qty: 12 0RF
ondansetron 4 mg tablet,disintegrating
4 mg PO Q6H PRN (Reason: nausea and vomiting) Qty: 7 0RF
dicyclomine 20 mg tablet
20 mg PO QID PRN (Reason: abdominal pain) Qty: 10 0RF
doxycycline hyclate 100 mg tablet
100 mg PO BID Qty: 10 0RF
Referrals:
Wander Kincaid MD [Family Provider, Family Practice]
Activity Restrictions/Additional Instructions:
C diff result should finalize tomorrow morning
Stool culture will take 48 hours
Interventions
Interventions:
*Risk Screen - Suicide Last Done: 09/04/25 20:40
*General Assessment Last Done: 09/04/25 20:40
*Neglect/Abuse Screening Last Done: 09/04/25 20:40
*ED- Fall Risk Assessment Last Done: 09/04/25 23:48
*ED COVID-19 Vaccine History Last Done: 09/04/25 20:40
*ED Influenza Vaccine History Last Done: 09/04/25 20:40
*Nursing Disposition Last Done: 09/05/25 00:23
ZH-[id number] Assessment Last Done: 09/04/25 23:51
Discharge Date and Time
Discharge Date/Time: 09/05/25 00:25
Print Language: ITALIAN
[2025-09-04] MEDS: BENTYL 20 MG PO (23:47)
[2025-09-04 23:49] VITALS: BP 115/82
[2025-09-05] MEDS: FIRVANQ 125 MG PO (00:21)
== END 2025-09-05 00:25 | disposition home or self-care (01) ==
LOC: EMR 20:37
PROVIDERS: EMERGENCY PHYSICIAN Emergency Medicine; FAMILY PHYSICIAN Family Medicine
DX: R19.7 Diarrhea, unspecified (principal); C50.919 Malignant neoplasm of unspecified site of unspecified female breast; F17.200 Nicotine dependence, unspecified, uncomplicated; Z98.51 Tubal ligation status
CPT/HCPCS: 99283; 80053; 83690; 85025; 87045; 87046; 87077; 87324; 87427; 87449

== ENCOUNTER → 2025-09-24 15:21 | Outpatient (REF) | payer OTHER, SELFPAY | LOC: RAD 15:21 | PROVIDERS: ATTENDING PHYSICIAN Nurse Practitioner Adult Health; FAMILY PHYSICIAN Family Medicine | DX: R22.43 Localized swelling, mass and lump, lower limb, bilateral (principal); R93.89 Abnormal findings on diagnostic imaging of other specified body structures; G89.3 Neoplasm related pain (acute) (chronic); R91.1 Solitary pulmonary nodule; C50.212 Malignant neoplasm of upper-inner quadrant of left female breast | CPT/HCPCS: 93970 ==